=== PATIENT | female | born 1980 | race Caucasian/White ===

== ENCOUNTER → 2017-08-31 | Outpatient (CLI) | payer OTHER ==
--- NOTE | 2017-08-31 13:47 | Diagnostic Imaging Report ---
EXAMINATION: Pelvic ultrasound. INDICATION: Dysmenorrhea. There are no prior studies available for comparison. This study was technically difficult due to the patient's body habitus. The uterus is nongravid and not enlarged measuring 9.1 x 4.7 x 4.4 cm. The endometrial lining is not thickened measuring 5 mm. There is no focal mass involving the uterus to suggest a fibroid. Neither ovary could be identified. There is no pelvic mass or free fluid collection evident. A small amount of fluid was seen within the bladder. IMPRESSION: 1. There is no acute abnormality of the pelvis, although the ovaries were not visualized. 2. If clinical concern regarding an underlying abnormality persists and further imaging is desired, then CT of the abdomen and pelvis would be recommended. Dictated by: Dictated on workstation # [id number]
== END ==
LOC: RAD 12:35
PROVIDERS: ATTEND Nurse Practitioner
DX: N94.6 Dysmenorrhea, unspecified (principal); N92.0 Excessive and frequent menstruation with regular cycle
CPT/HCPCS: 76830; 76856